=== PATIENT | male | born 1945 | race Two or more races ===

== ENCOUNTER 2024-02-02 19:10 | Inpatient (IN) | payer MEDICARE, OTHER ==
[~2024-02-02] VITALS: Ht 167.6 cm; Wt 70.8 kg
[2024-02-02 20:06] LABS: BASOPHILS # (AUTO) 0.1 K/UL (0.0-0.2); BASOPHILS % (AUTO) 0.6 % (0.0-2.0); EOSINOPHILS # (AUTO) 0.4 K/uL (0.0-0.7); EOSINOPHILS % (AUTO) 4.6 % (0.0-7.0); HEMATOCRIT 44.2 % (36.7-47.1); HEMOGLOBIN 15.3 g/dL (12.5-16.3); LYMPHOCYTES # (AUTO) 2.3 K/uL (0.8-4.8); LYMPHOCYTES % (AUTO) 27.6 % (20.5-51.5); MEAN CORPUSCULAR HEMOGLOBIN 31.9 uug (23.8-33.4); MEAN CORPUSCULAR HGB CONC 35 g/dL (32.5-36.3); MEAN CORPUSCULAR VOLUME 92.5 fL (73.0-96.2); MONOCYTES # (AUTO) 0.7 K/uL (0.1-1.30); NEUTROPHILS # (AUTO) 4.8 K/uL (1.8-8.9); NEUTROPHILS % (AUTO) 58.2 % (38.5-71.5); PLATELET COUNT (AUTO) 207 K/uL (152-348); RED BLOOD CELL COUNT(AUTO) 4.78 MIL/uL (4.06-5.63); RED CELL DISTRIBUTION WIDTH 14.2 % (12.1-16.2); WHITE BLOOD COUNT (AUTO) 8.2 K/uL (3.6-10.2)
[2024-02-02 20:09] LABS: DIFFERENTIAL COMMENT 1
[2024-02-02 20:18] LABS: ETHANOL < 3 MG/DL (0-10)
[2024-02-02 20:26] LABS: ALANINE AMINOTRANSFERASE 22 U/L (16-63); ALBUMIN 3.7 g/dL (3.4-5.0); ALKALINE PHOSPHATASE 84 U/L (50-136); ASPARTATE AMINOTRANSFERASE 13 U/L (15-37); BILIRUBIN,DIRECT 0.1 mg/dL (0.0-0.2); BILIRUBIN,TOTAL 0.5 mg/dL (0.2-1.0); CALCIUM 8.7 mg/dL (8.5-10.1); CARBON DIOXIDE 29 mmol/L (21-32); CHLORIDE 101 mmol/L (98-107); GLUCOSE 166 mg/dL (74-106); POTASSIUM 4.3 mmol/L (3.5-5.1); SODIUM SERUM 138 mmol/L (136-145); TOTAL PROTEIN, SERUM 7.4 g/dL (6.4-8.2); UREA NITROGEN, BLOOD 25 mg/dL (7-18)
[2024-02-02] MEDS ORDERED: QUET100T PO (20:26)
[2024-02-02] MEDS ORDERED: DAPA10TA PO (20:26)
[2024-02-02] MEDS ORDERED: ACET-3117 PO (20:26)
[2024-02-02] MEDS ORDERED: glargine insulin SUBCUT (20:26)
[2024-02-02] MEDS ORDERED: METF-494 PO (20:26)
[2024-02-02] MEDS ORDERED: POLY250017 PO (20:26)
[2024-02-02] MEDS ORDERED: NIFE90TA61 PO (20:26)
[2024-02-02] MEDS ORDERED: MAG355OR18 PO (20:26)
[2024-02-02] MEDS ORDERED: ESCI-9 PO (20:26)
[2024-02-02] MEDS ORDERED: CHOL2000 PO (20:26)
[2024-02-02] MEDS ORDERED: APIX5TAB PO (20:26)
[2024-02-02] MEDS ORDERED: ATOR20TA PO (20:26)
[2024-02-02] MEDS ORDERED: B CO1TAB6 PO (20:26)
[2024-02-02] MEDS ORDERED: FURO20TA4 PO (20:26)
[2024-02-02] MEDS ORDERED: CARV25TA2 PO (20:26)
[2024-02-02] MEDS ORDERED: LOSA100T31 PO (20:26)
[2024-02-02 20:27] LABS: AMMONIA < 10 umol/L (11-32)
[2024-02-02 20:28] LABS: ACETAMINOPHEN < 10.0 ug/mL (10-30)
[2024-02-02 20:34] LABS: *BILIRUBIN,URIN NEGATIVE (NEGATIVE); *BLOOD, URINE NEGATIVE (NEGATIVE); *CLARITY,URINE CLEAR (CLEAR); *COLOR,URINE YELLOW (YELLOW); *KETONES,URINE NEGATIVE (NEGATIVE); *PROTEIN,URINE 1+ (NEGATIVE); *UROBILINOGEN,URINE 0.2 E.U./dl (NORMAL); LEUKOCYTE ESTERASE ,URINE NEGATIVE (NEGATIVE); NITRITE, URINE NEGATIVE (NEGATIVE)
[2024-02-02 20:45] LABS: *AMPHETAMINE, URINE NEGATIVE (NEGATIVE); *BARBITURATE, URINE NEGATIVE (NEGATIVE); *BENZODIAZEPINE, URINE NEGATIVE (NEGATIVE); *CANNABINOID, URINE NEGATIVE (NEGATIVE); *COCCAINE, URINE NEGATIVE (NEGATIVE); *OPIATE, URINE NEGATIVE (NEGATIVE); *PHENCYCLIDINE SCREEN,URINE NEGATIVE (NEGATIVE)
[2024-02-02 20:51] LABS: UGLUCOSE 2+ (NEGATIVE)
[2024-02-02 20:55] LABS: THYROID STIMULATING HORMONE 1.303 mIU/mL (0.358-3.740)
[2024-02-02 20:57] LABS: FENTANYL, URINE NEGATIVE (NEGATIVE)
[2024-02-02 21:07] LABS: BACTERIA,URINE NONE SEEN /HPF (NONE SEEN); RBC,URINE 0-3 /HPF (0-3); SQUAMOUS EPITHELIAL CELL,UR FEW /HPF (NONE SEEN); WBC,URINE NONE SEEN /HPF (0-3)
[2024-02-02] MEDS ORDERED: ACETAMINOPHEN 325 MG TABLET PO PRN (23:30)
[2024-02-02] MEDS ORDERED: MAG HYDROX/AL HYDROX/SIMETH 30 ML LIQUID UDC PO PRN (23:30)
[2024-02-02] MEDS ORDERED: MAGNESIUM HYDROXIDE 30 ML LIQUID UDC PO PRN (23:30)
[2024-02-02 23:40] VITALS: BP 134/74; TEMP 97.8; O2SAT 95
[2024-02-03] MEDS: ZOLPIDEM 5 MG TABLET PO PRN (00:22)
[2024-02-03 07:34] LABS: ALANINE AMINOTRANSFERASE 24 U/L (16-63); ALBUMIN 3.3 g/dL (3.4-5.0); ALKALINE PHOSPHATASE 73 U/L (50-136); ASPARTATE AMINOTRANSFERASE 13 U/L (15-37); BILIRUBIN,TOTAL 0.5 mg/dL (0.2-1.0); CALCIUM 8.9 mg/dL (8.5-10.1); CARBON DIOXIDE 30 mmol/L (21-32); CHLORIDE 105 mmol/L (98-107); GLUCOSE 105 mg/dL (74-106); POTASSIUM 4.4 mmol/L (3.5-5.1); SODIUM SERUM 139 mmol/L (136-145); TOTAL PROTEIN, SERUM 6.3 g/dL (6.4-8.2); UREA NITROGEN, BLOOD 22 mg/dL (7-18)
[2024-02-03 07:39] VITALS: BP 141/65; TEMP 97.8; O2SAT 98
[2024-02-03] MEDS ORDERED: ACETAMINOPHEN 325 MG TABLET PO PRN (09:15)
[2024-02-03] MEDS ORDERED: MAG HYDROX/AL HYDROX/SIMETH 30 ML LIQUID UDC PO PRN (09:15)
[2024-02-03] MEDS: ESCITALOPRAM OXALATE 10 MG TABLET PO SCH (10:00)
[2024-02-03] MEDS: NICOTINE 14 MG/24HR PATCH TD SCH (10:00)
[2024-02-03] MEDS: DIVALPROEX 250 MG TABLET.DR PO SCH (10:01)
[2024-02-03] MEDS ORDERED: METF-440 PO (10:30)
[2024-02-03] MEDS ORDERED: REMEDY ESSENTIAL ZINC PASTE 113 GM TOP PRN (13:45)
[2024-02-03 16:33] VITALS: BP 148/72; TEMP 97.9; O2SAT 98
[2024-02-03] MEDS ORDERED: METFORMIN HCL 750 MG PO SCH (17:00)
[2024-02-03] MEDS: CARVEDILOL 25 MG TABLET PO SCH (17:52)
[2024-02-03] MEDS: APIXABAN 5 MG TABLET PO SCH (17:53)
[2024-02-03 20:00] VITALS: BP 153/62; TEMP 98.3; O2SAT 98
[2024-02-03] MEDS: LORAZEPAM 1 MG TABLET PO PRN (20:52)
[2024-02-03] MEDS: ATORVASTATIN 20 MG TABLET PO SCH (20:52)
[2024-02-03] MEDS: INSULIN GLARGINE,HUM 300 UNITS/3 ML CARTRIDGE SQ SCH (21:08)
[2024-02-04 08:08] VITALS: BP 133/61; TEMP 98.1; O2SAT 98
[2024-02-04] MEDS: MIRALAX 17 GM POWD.PACK PO SCH (08:33)
[2024-02-04] MEDS: NIFEdipine XL 90 MG TABSR PO SCH (08:33)
[2024-02-04] MEDS: FUROSEMIDE 20 MG TABLET PO SCH (08:34)
[2024-02-04] MEDS: LOSARTAN POTASSIUM 50 MG TABLET PO SCH (08:34)
[2024-02-04] MEDS: DAPAGLIFLOZIN PROPANEDIOL 5 MG TABLET PO SCH (08:38)
[2024-02-04] MEDS: MUPIROCIN 2% OINT 22 GM TUBE NS SCH (08:39)
[2024-02-04 16:49] VITALS: BP 98/51; TEMP 98; O2SAT 98
[2024-02-04 20:03] VITALS: BP 115/68; TEMP 97.9; O2SAT 97
[2024-02-05 07:39] VITALS: BP 134/68; TEMP 98.2; O2SAT 98
[2024-02-05] MEDS: METFORMIN HCL 500 MG TABLET PO SCH (08:55)
[2024-02-05 16:09] VITALS: BP 95/53; TEMP 97.8; O2SAT 98
[2024-02-05 20:04] VITALS: BP 104/56; TEMP 98; O2SAT 96
[2024-02-06 07:48] VITALS: BP 138/73; TEMP 98; O2SAT 96
[2024-02-06 15:32] VITALS: BP 136/61; TEMP 98; O2SAT 98
[2024-02-06 20:30] VITALS: BP 164/75; TEMP 98.2; O2SAT 96
[2024-02-06 23:31] VITALS: BP 137/79; O2SAT 96
[2024-02-07 07:56] VITALS: BP 174/74; TEMP 98.2; O2SAT 94
[2024-02-07 10:30] VITALS: BP 154/69; O2SAT 95
[2024-02-07 15:32] VITALS: BP 90/43; TEMP 98; O2SAT 94
[2024-02-07 20:00] VITALS: BP 117/57; TEMP 97.4; O2SAT 94
[2024-02-08 07:30] VITALS: BP 130/72; TEMP 98.2; O2SAT 96
[2024-02-08] MEDS: DIVALPROEX 250 MG TABLET.DR PO SCH (08:22)
[2024-02-08 15:26] VITALS: BP 106/44; TEMP 98; O2SAT 100
[2024-02-08 20:00] VITALS: BP 104/60; TEMP 97.4; O2SAT 92
[2024-02-09 07:30] VITALS: BP 161/75; TEMP 98.2; O2SAT 99
[2024-02-09 15:11] VITALS: BP 90/50; TEMP 98; O2SAT 98
[2024-02-09 20:00] VITALS: BP 98/51; TEMP 97.8; O2SAT 90
[2024-02-10 07:57] VITALS: BP 139/73; TEMP 98; O2SAT 98
[2024-02-10 16:52] VITALS: BP 94/52; TEMP 98; O2SAT 98
[2024-02-10 20:00] VITALS: BP 113/60; TEMP 97.7; O2SAT 95
[2024-02-11 08:44] VITALS: BP 135/62; TEMP 98; O2SAT 98
[2024-02-11 16:10] VITALS: BP 111/56; TEMP 98; O2SAT 98
[2024-02-11 20:06] VITALS: BP 126/60; TEMP 98.2; O2SAT 96
[2024-02-11] MEDS: INSULIN GLARGINE,HUM 300 UNITS/3 ML CARTRIDGE SQ SCH (21:00)
[2024-02-12 07:54] VITALS: BP 131/68; TEMP 98.3; O2SAT 98
[2024-02-12 10:38] LABS: BASOPHILS % (AUTO) 0.4 % (0.0-2.0); EOSINOPHILS # (AUTO) 0.2 K/uL (0.0-0.7); EOSINOPHILS % (AUTO) 3.4 % (0.0-7.0); HEMATOCRIT 41.6 % (36.7-47.1); HEMOGLOBIN 13.9 g/dL (12.5-16.3); LYMPHOCYTES # (AUTO) 1.6 K/uL (0.8-4.8); LYMPHOCYTES % (AUTO) 26.1 % (20.5-51.5); MEAN CORPUSCULAR HEMOGLOBIN 30.9 uug (23.8-33.4); MEAN CORPUSCULAR HGB CONC 34 g/dL (32.5-36.3); MEAN CORPUSCULAR VOLUME 92.2 fL (73.0-96.2); MONOCYTES # (AUTO) 0.7 K/uL (0.1-1.30); MONOCYTES % (AUTO) 11.8 % (0.0-11.0); NEUTROPHILS # (AUTO) 3.6 K/uL (1.8-8.9); NEUTROPHILS % (AUTO) 58.3 % (38.5-71.5); PLATELET COUNT (AUTO) 183 K/uL (152-348); RED BLOOD CELL COUNT(AUTO) 4.52 MIL/uL (4.06-5.63); RED CELL DISTRIBUTION WIDTH 13.9 % (12.1-16.2); WHITE BLOOD COUNT (AUTO) 6.2 K/uL (3.6-10.2)
[2024-02-12 10:41] LABS: DIFFERENTIAL COMMENT 1
[2024-02-12 11:00] LABS: AMMONIA 36 umol/L (11-32)
[2024-02-12 11:17] LABS: ALANINE AMINOTRANSFERASE 44 U/L (16-63); ALKALINE PHOSPHATASE 64 U/L (50-136); ASPARTATE AMINOTRANSFERASE 30 U/L (15-37); BILIRUBIN,TOTAL 0.5 mg/dL (0.2-1.0); CALCIUM 8.6 mg/dL (8.5-10.1); CARBON DIOXIDE 30 mmol/L (21-32); CHLORIDE 104 mmol/L (98-107); CREATININE 0.9 mg/dL (0.6-1.3); GLUCOSE 94 mg/dL (74-106); MAGNESIUM 2.2 mg/dL (1.8-2.4); PHOSPHOROUS 3.2 mg/dL (2.5-4.9); POTASSIUM 4.4 mmol/L (3.5-5.1); SODIUM SERUM 139 mmol/L (136-145); TOTAL PROTEIN, SERUM 6.3 g/dL (6.4-8.2); UREA NITROGEN, BLOOD 34 mg/dL (7-18)
[2024-02-12 16:38] VITALS: BP 99/42; TEMP 98.1; O2SAT 98
[2024-02-12 19:51] VITALS: BP 105/50; TEMP 98.2; O2SAT 96
[2024-02-12] MEDS: MELATONIN 3 MG TABLET PO SCH (20:40)
[2024-02-13 09:26] VITALS: BP 136/56; TEMP 98; O2SAT 92
[2024-02-13 15:15] VITALS: BP 90/45; TEMP 98; O2SAT 98
[2024-02-13 20:10] VITALS: BP 116/52; TEMP 98.2; O2SAT 96
[2024-02-14 07:51] VITALS: BP 146/69; TEMP 98.2; O2SAT 98
[2024-02-14 15:14] VITALS: BP 110/47; TEMP 98; O2SAT 94
== END 2024-02-14 16:00 | DRG 885 ==
LOC: EDBD 19:13 → ER 19:13 → GPS 23:12
PROVIDERS: ADMIT Psychiatry & Neurology Psychiatry; ATTEND Internal Medicine
DX: F32.3 Major depressive disorder, single episode, severe with psychotic features (principal); N18.9 Chronic kidney disease, unspecified; E44.0 Moderate protein-calorie malnutrition; K55.9 Vascular disorder of intestine, unspecified; I13.0 Hypertensive heart and chronic kidney disease with heart failure and stage 1 through stage 4 chronic kidney disease, or unspecified chronic kidney disease; F03.93 Unspecified dementia, unspecified severity, with mood disturbance; F10.20 Alcohol dependence, uncomplicated; Y90.0 Blood alcohol level of less than 20 mg/100 ml; E11.51 Type 2 diabetes mellitus with diabetic peripheral angiopathy without gangrene; Z89.422 Acquired absence of other left toe(s); Z89.421 Acquired absence of other right toe(s); Z87.820 Personal history of traumatic brain injury; E11.42 Type 2 diabetes mellitus with diabetic polyneuropathy; R27.9 Unspecified lack of coordination; M15.9 Polyosteoarthritis, unspecified; F17.210 Nicotine dependence, cigarettes, uncomplicated; J44.9 Chronic obstructive pulmonary disease, unspecified; I48.91 Unspecified atrial fibrillation; G93.89 Other specified disorders of brain; K74.60 Unspecified cirrhosis of liver; M81.0 Age-related osteoporosis without current pathological fracture; I50.9 Heart failure, unspecified; N40.0 Benign prostatic hyperplasia without lower urinary tract symptoms; E11.22 Type 2 diabetes mellitus with diabetic chronic kidney disease; E88.09 Other disorders of plasma-protein metabolism, not elsewhere classified; Z79.84 Long term (current) use of oral hypoglycemic drugs; Z79.899 Other long term (current) drug therapy; Z91.81 History of falling; Z91.199 Patient's noncompliance with other medical treatment and regimen due to unspecified reason; Z79.01 Long term (current) use of anticoagulants; Z60.4 Social exclusion and rejection; R41.9 Unspecified symptoms and signs involving cognitive functions and awareness; F20.9 Schizophrenia, unspecified; F43.10 Post-traumatic stress disorder, unspecified
CPT/HCPCS: 36415; 70450; 71045; 80164; 83735; 84100; 84443; 84484; 85025; 85730; 93005; 97161; A4606; A4663; C1758; G0480; J1815; J3490

== ENCOUNTER 2024-11-18 17:10 | Inpatient (IN) | payer MEDICARE, OTHER ==
[~2024-11-18] VITALS: Ht 167.6 cm; Wt 66.7 kg
[~2024-11-18 17:10] MED LIST: ACET-3117 PO; APIX5TAB PO; ATOR20TA PO; B CO1TAB6 PO; CARV25TA2 PO; CHOL2000 PO; DAPA10TA PO; FURO20TA4 PO; LOSA100T31 PO; MAG355OR18 PO; METF-440 PO; NIFE90TA61 PO; POLY250017 PO; glargine insulin SUBCUT
[2024-11-18 18:02] LABS: BASOPHILS % (AUTO) 0.5 % (0.0-2.0); EOSINOPHILS # (AUTO) 0.1 K/uL (0.0-0.7); EOSINOPHILS % (AUTO) 2.1 % (0.0-7.0); HEMATOCRIT 37.8 % (36.7-47.1); LYMPHOCYTES # (AUTO) 1.5 K/uL (0.8-4.8); LYMPHOCYTES % (AUTO) 29.1 % (20.5-51.5); MEAN CORPUSCULAR HGB CONC 34 g/dL (32.5-36.3); MEAN CORPUSCULAR VOLUME 96.3 fL (73.0-96.2); MONOCYTES # (AUTO) 0.6 K/uL (0.1-1.30); MONOCYTES % (AUTO) 11.6 % (0.0-11.0); NEUTROPHILS # (AUTO) 2.9 K/uL (1.8-8.9); NEUTROPHILS % (AUTO) 56.7 % (38.5-71.5); PLATELET COUNT (AUTO) 217 K/uL (152-348); RED BLOOD CELL COUNT(AUTO) 3.92 MIL/uL (4.06-5.63); RED CELL DISTRIBUTION WIDTH 13.4 % (12.1-16.2); WHITE BLOOD COUNT (AUTO) 5.1 K/uL (3.6-10.2)
[2024-11-18 18:07] LABS: CALCIUM 9.1 mg/dL (8.5-10.1); CARBON DIOXIDE 31 mmol/L (21-32); CHLORIDE 110 mmol/L (98-107); CREATININE 1.1 mg/dL (0.6-1.3); GLUCOSE 127 mg/dL (74-106); POTASSIUM 4.7 mmol/L (3.5-5.1); SODIUM SERUM 148 mmol/L (136-145); UREA NITROGEN, BLOOD 33 mg/dL (7-18)
[2024-11-18 18:15] LABS: ALANINE AMINOTRANSFERASE 25 U/L (16-63); ALBUMIN 3.6 g/dL (3.4-5.0); ALKALINE PHOSPHATASE 69 U/L (50-136); ASPARTATE AMINOTRANSFERASE 32 U/L (15-37); BILIRUBIN,DIRECT 0.1 mg/dL (0.0-0.2); BILIRUBIN,TOTAL 0.5 mg/dL (0.2-1.0); LIPASE 26 U/L (16-77); TOTAL PROTEIN, SERUM 6.8 g/dL (6.4-8.2)
[2024-11-18] MEDS ORDERED: LEVO50TA PO (19:25)
[2024-11-18] MEDS ORDERED: MELA3CAP2 PO (19:25)
[2024-11-18] MEDS ORDERED: MAGN400O6 PO (19:25)
[2024-11-18] MEDS ORDERED: LACT1CAP69 PO (19:25)
[2024-11-18] MEDS ORDERED: ISOS60TA72 PO (19:33)
[2024-11-18] MEDS ORDERED: DIVA500T54 PO (19:33)
[2024-11-18] MEDS ORDERED: LIDO1ADH23 TP (19:33)
[2024-11-18] MEDS ORDERED: BISA10SU61 RC (19:33)
[2024-11-18] MEDS ORDERED: GABA300C PO (19:33)
[2024-11-18] MEDS ORDERED: MINE133E RC (19:33)
[2024-11-18 21:00] LABS: *BILIRUBIN,URIN NEGATIVE (NEGATIVE); *CLARITY,URINE CLEAR (CLEAR); *COLOR,URINE YELLOW (YELLOW); *KETONES,URINE TRACE (NEGATIVE); *PROTEIN,URINE 1+ (NEGATIVE); *UROBILINOGEN,URINE 0.2 E.U./dl (NORMAL); LEUKOCYTE ESTERASE ,URINE NEGATIVE (NEGATIVE); NITRITE, URINE NEGATIVE (NEGATIVE)
[2024-11-18 21:02] LABS: *BLOOD, URINE NEGATIVE (NEGATIVE); RBC,URINE 0-3 /HPF (0-3); UGLUCOSE 2+ (NEGATIVE); WBC,URINE 0-3 /HPF (0-3)
[2024-11-18] MEDS ORDERED: QUETIAPINE FUMARATE 25 MG TABLET PO PRN (22:15)
[2024-11-18] MEDS ORDERED: ZOLPIDEM 5 MG TABLET PO PRN (22:15)
[2024-11-18] MEDS ORDERED: MAGNESIUM HYDROXIDE 30 ML LIQUID UDC PO PRN (22:15)
[2024-11-18] MEDS ORDERED: MAG HYDROX/AL HYDROX/SIMETH 30 ML LIQUID UDC PO PRN (22:15)
[2024-11-18] MEDS ORDERED: DEXTROSE 50% 50 ML DISP.SYRIN IV PRN (22:30)
[2024-11-18] MEDS ORDERED: INSULIN REGULAR, HUMAN 1000 UNIT/10 ML VIAL SQ PRN (22:30)
[2024-11-18] MEDS ORDERED: INSULIN REGULAR, HUMAN 300 UNITS/3 ML VIAL SQ PRN (22:30)
[2024-11-18 22:35] VITALS: BP 165/74; TEMP 98; O2SAT 98
[2024-11-18] MEDS: BLOOD SUGAR DIAGNOSTIC 1 EACH STRIP VI ONE (22:35)
[2024-11-18] MEDS: ZOLPIDEM 5 MG TABLET PO PRN (22:47)
[2024-11-19] MEDS: LORAZEPAM 1 MG TABLET PO PRN (05:15)
[2024-11-19] MEDS: LEVOTHYROXINE SODIUM 50 MCG TABLET PO SCH (06:44)
[2024-11-19] MEDS: BLOOD SUGAR DIAGNOSTIC 1 EACH STRIP VI SCH (06:44)
[2024-11-19] MEDS: METFORMIN HCL 500 MG TABLET PO SCH (08:00)
[2024-11-19 08:20] VITALS: BP 159/64; TEMP 98.1; O2SAT 100
[2024-11-19] MEDS: OLANZAPINE 10 MG VIAL IM STA (08:49)
[2024-11-19] MEDS ORDERED: DIVALPROEX ER 500 MG TAB.SR.24H PO SCH ×2 (09:00)
[2024-11-19] MEDS ORDERED: METFORMIN HCL 500 MG TABLET PO SCH (09:00)
[2024-11-19] MEDS: ISOSORBIDE MONONITRATE 30 MG TAB.SR.24H PO SCH (09:00)
[2024-11-19] MEDS ORDERED: Medication Not On Formulary EA (Losartan Potassium 100 MG) PO SCH (09:00)
[2024-11-19] MEDS: FUROSEMIDE 20 MG TABLET PO SCH (09:00)
[2024-11-19] MEDS ORDERED: ISOSORBIDE MONONITRATE 60 MG TAB.SR.24H PO SCH (09:00)
[2024-11-19] MEDS: APIXABAN 5 MG TABLET PO SCH (09:00)
[2024-11-19] MEDS: LOSARTAN POTASSIUM 50 MG TABLET PO SCH (09:00)
[2024-11-19] MEDS: CARVEDILOL 25 MG TABLET PO SCH (09:00)
[2024-11-19] MEDS: GABAPENTIN 100 MG CAPSULE PO SCH (09:00)
[2024-11-19] MEDS: NIFEdipine XL 90 MG TABSR PO SCH (09:00)
[2024-11-19] MEDS ORDERED: GABAPENTIN 300 MG CAPSULE PO SCH ×2 (09:00)
[2024-11-19] MEDS: DAPAGLIFLOZIN PROPANEDIOL 10 MG TABLET PO SCH (09:00)
[2024-11-19] MEDS ORDERED: LIDO30AD10 TP (12:49)
[2024-11-19 16:14] VITALS: BP 177/109; TEMP 97.6; O2SAT 96
[2024-11-19] MEDS: CLONIDINE TTS 2 PATCH TD SCH (16:18)
[2024-11-19] MEDS: CARVEDILOL 12.5 MG TABLET PO SCH (16:18)
[2024-11-19 20:00] VITALS: BP 169/69; TEMP 98; O2SAT 96
[2024-11-19] MEDS: ATORVASTATIN 20 MG TABLET PO SCH (21:00)
[2024-11-19] MEDS: MELATONIN 3 MG TABLET PO SCH (21:00)
[2024-11-19] MEDS ORDERED: Medication Not On Formulary EA (Melatonin 3 MG) PO SCH (21:00)
[2024-11-19] MEDS ORDERED: INSULIN GLARGINE,HUM 300 UNITS/3 ML CARTRIDGE SQ SCH (21:00)
[2024-11-19] MEDS: DIVALPROEX 125 MG TABLET.DR PO SCH (21:01)
[2024-11-19] MEDS: QUETIAPINE FUMARATE 25 MG TABLET PO SCH (21:01)
[2024-11-19] MEDS: ZOLPIDEM 5 MG TABLET PO PRN (23:34)
[2024-11-19] MEDS: ACETAMINOPHEN 325 MG TABLET PO PRN (23:34)
[2024-11-20] MEDS: QUETIAPINE FUMARATE 25 MG TABLET PO PRN (00:43)
[2024-11-20 08:41] VITALS: BP 138/69; TEMP 98; O2SAT 98
[2024-11-20 20:00] VITALS: BP 84/42; TEMP 98; O2SAT 100
[2024-11-20] MEDS: QUETIAPINE FUMARATE 25 MG TABLET PO SCH (21:05)
[2024-11-20 21:25] VITALS: BP 110/53; O2SAT 98
[2024-11-21 09:28] VITALS: BP 90/45; TEMP 98; O2SAT 98
[2024-11-21] MEDS: DIVALPROEX 250 MG TABLET.DR PO SCH (13:47)
[2024-11-21 15:35] VITALS: BP 94/50; TEMP 98; O2SAT 98
[2024-11-21 20:00] VITALS: BP 92/46; TEMP 98; O2SAT 97
[2024-11-22 08:22] VITALS: BP 128/69; TEMP 98.3; O2SAT 100
[2024-11-22 16:04] VITALS: BP 131/68; TEMP 98.8; O2SAT 100
[2024-11-22 20:00] VITALS: BP 130/67; TEMP 98; O2SAT 97
[2024-11-23 07:23] LABS: BASOPHILS % (AUTO) 0.6 % (0.0-2.0); EOSINOPHILS # (AUTO) 0.1 K/uL (0.0-0.7); EOSINOPHILS % (AUTO) 2.1 % (0.0-7.0); HEMATOCRIT 36.9 % (36.7-47.1); HEMOGLOBIN 12.7 g/dL (12.5-16.3); LYMPHOCYTES # (AUTO) 2.3 K/uL (0.8-4.8); LYMPHOCYTES % (AUTO) 38.8 % (20.5-51.5); MEAN CORPUSCULAR HEMOGLOBIN 32.7 uug (23.8-33.4); MEAN CORPUSCULAR HGB CONC 34 g/dL (32.5-36.3); MEAN CORPUSCULAR VOLUME 95.1 fL (73.0-96.2); MONOCYTES # (AUTO) 0.6 K/uL (0.1-1.30); MONOCYTES % (AUTO) 10.5 % (0.0-11.0); NEUTROPHILS # (AUTO) 2.9 K/uL (1.8-8.9); PLATELET COUNT (AUTO) 200 K/uL (152-348); RED BLOOD CELL COUNT(AUTO) 3.88 MIL/uL (4.06-5.63); RED CELL DISTRIBUTION WIDTH 13.6 % (12.1-16.2); WHITE BLOOD COUNT (AUTO) 5.9 K/uL (3.6-10.2)
[2024-11-23 07:33] LABS: DIFFERENTIAL COMMENT 1
[2024-11-23 08:09] LABS: ALANINE AMINOTRANSFERASE 26 U/L (16-63); ALBUMIN 3.4 g/dL (3.4-5.0); ALKALINE PHOSPHATASE 65 U/L (50-136); ASPARTATE AMINOTRANSFERASE 27 U/L (15-37); BILIRUBIN,TOTAL 0.5 mg/dL (0.2-1.0); CALCIUM 8.9 mg/dL (8.5-10.1); CARBON DIOXIDE 29 mmol/L (21-32); CHLORIDE 106 mmol/L (98-107); CREATININE 1.4 mg/dL (0.6-1.3); GLUCOSE 107 mg/dL (74-106); MAGNESIUM 2.3 mg/dL (1.8-2.4); PHOSPHOROUS 3.8 mg/dL (2.5-4.9); POTASSIUM 4.7 mmol/L (3.5-5.1); SODIUM SERUM 140 mmol/L (136-145); TOTAL PROTEIN, SERUM 6.6 g/dL (6.4-8.2); UREA NITROGEN, BLOOD 40 mg/dL (7-18)
[2024-11-23 08:31] VITALS: BP 133/65; TEMP 98; O2SAT 100
[2024-11-23 08:37] LABS: THYROID STIMULATING HORMONE 0.643 mIU/mL (0.358-3.740)
[2024-11-23 16:39] VITALS: BP 100/61; TEMP 98; O2SAT 100
[2024-11-23] MEDS ORDERED: CLONIDINE-TTS 1 PATCH TD SCH (19:30)
[2024-11-24 08:27] VITALS: BP 110/57; TEMP 98; O2SAT 95
[2024-11-24] MEDS: CLONIDINE-TTS 1 PATCH TD SCH (09:00)
[2024-11-24] MEDS: LOSARTAN POTASSIUM 50 MG TABLET PO SCH (09:33)
[2024-11-24] MEDS: QUETIAPINE FUMARATE 25 MG TABLET PO SCH (09:34)
[2024-11-24 15:40] VITALS: BP 117/59; TEMP 98.2; O2SAT 97
[2024-11-24 20:28] VITALS: BP 112/62; TEMP 98.2; O2SAT 96
[2024-11-25 08:20] VITALS: BP 108/58; TEMP 97.7; O2SAT 100
[2024-11-25 16:02] VITALS: BP 108/41; TEMP 98.1; O2SAT 100
[2024-11-25 20:00] VITALS: BP 136/53; TEMP 98; O2SAT 100
[2024-11-25] MEDS: QUETIAPINE FUMARATE 25 MG TABLET PO SCH (21:37)
[2024-11-26 08:07] VITALS: BP 159/70; TEMP 98; O2SAT 96
[2024-11-26] MEDS: QUETIAPINE FUMARATE 25 MG TABLET PO SCH (08:38)
[2024-11-26 15:20] VITALS: BP 100/57; TEMP 98; O2SAT 96
[2024-11-26 20:00] VITALS: TEMP 98; O2SAT 95
[2024-11-26] MEDS: TRAZODONE 50 MG TABLET PO SCH (20:10)
[2024-11-27 07:26] LABS: BASOPHILS % (AUTO) 0.6 % (0.0-2.0); EOSINOPHILS # (AUTO) 0.1 K/uL (0.0-0.7); EOSINOPHILS % (AUTO) 1.6 % (0.0-7.0); HEMATOCRIT 38.3 % (36.7-47.1); HEMOGLOBIN 13.3 g/dL (12.5-16.3); LYMPHOCYTES # (AUTO) 1.6 K/uL (0.8-4.8); LYMPHOCYTES % (AUTO) 22.5 % (20.5-51.5); MEAN CORPUSCULAR HEMOGLOBIN 32.8 uug (23.8-33.4); MEAN CORPUSCULAR HGB CONC 35 g/dL (32.5-36.3); MEAN CORPUSCULAR VOLUME 94.4 fL (73.0-96.2); MONOCYTES # (AUTO) 0.9 K/uL (0.1-1.30); MONOCYTES % (AUTO) 12.4 % (0.0-11.0); NEUTROPHILS # (AUTO) 4.4 K/uL (1.8-8.9); NEUTROPHILS % (AUTO) 62.9 % (38.5-71.5); PLATELET COUNT (AUTO) 171 K/uL (152-348); RED BLOOD CELL COUNT(AUTO) 4.06 MIL/uL (4.06-5.63); RED CELL DISTRIBUTION WIDTH 13.1 % (12.1-16.2)
[2024-11-27 07:30] LABS: DIFFERENTIAL COMMENT 1
[2024-11-27 07:48] LABS: ALANINE AMINOTRANSFERASE 23 U/L (16-63); ALBUMIN 3.3 g/dL (3.4-5.0); ALKALINE PHOSPHATASE 67 U/L (50-136); ASPARTATE AMINOTRANSFERASE 41 U/L (15-37); BILIRUBIN,TOTAL 0.9 mg/dL (0.2-1.0); CALCIUM 9.1 mg/dL (8.5-10.1); CARBON DIOXIDE 27 mmol/L (21-32); CHLORIDE 102 mmol/L (98-107); GLUCOSE 130 mg/dL (74-106); MAGNESIUM 2.5 mg/dL (1.8-2.4); PHOSPHOROUS 3.5 mg/dL (2.5-4.9); POTASSIUM 4.3 mmol/L (3.5-5.1); SODIUM SERUM 138 mmol/L (136-145); TOTAL PROTEIN, SERUM 6.6 g/dL (6.4-8.2); UREA NITROGEN, BLOOD 36 mg/dL (7-18)
[2024-11-27 08:09] VITALS: BP 156/92; TEMP 98.2; O2SAT 96
[2024-11-27] MEDS ORDERED: ONDANSETRON HCL 4 MG TABLET PO PRN (18:45)
[2024-11-27 20:00] VITALS: BP 100/50; TEMP 98; O2SAT 100
[2024-11-28 08:00] VITALS: BP 87/49; TEMP 97.6; O2SAT 97
[2024-11-28] MEDS: QUETIAPINE FUMARATE 25 MG TABLET PO SCH (15:32)
[2024-11-28 16:00] VITALS: BP 107/55; TEMP 97.2; O2SAT 97
[2024-11-28 21:20] VITALS: BP 110/56; TEMP 97.6; O2SAT 96
[2024-11-29 08:22] VITALS: BP 139/56; TEMP 97.5; O2SAT 100
[2024-11-29 16:12] VITALS: BP 106/61; TEMP 98; O2SAT 100
[2024-11-29 19:54] VITALS: BP 109/66; TEMP 98.6; O2SAT 97
[2024-11-29] MEDS: QUETIAPINE FUMARATE 25 MG TABLET PO SCH (20:34)
[2024-11-30 08:20] VITALS: BP 133/71; TEMP 98.3; O2SAT 96
[2024-11-30 16:50] VITALS: BP 99/45; TEMP 98.4; O2SAT 99
[2024-11-30 20:00] VITALS: BP 100/51; TEMP 98.2; O2SAT 97
[2024-12-01 08:10] VITALS: BP 139/67; TEMP 97.8; O2SAT 96
[2024-12-01 16:56] VITALS: BP 118/75; TEMP 97.5; O2SAT 96
[2024-12-01] MEDS ORDERED: GABAPENTIN 100 MG CAPSULE PO SCH (17:00)
[2024-12-01] MEDS: GABAPENTIN 300 MG CAPSULE PO SCH (17:17)
[2024-12-01 20:49] VITALS: BP 179/82; TEMP 97.2; O2SAT 97
[2024-12-01 21:05] VITALS: BP 104/54; O2SAT 96
[2024-12-02 08:14] VITALS: BP 98/47; TEMP 97.4; O2SAT 100
[2024-12-02 08:31] LABS: ALANINE AMINOTRANSFERASE 19 U/L (16-63); ALKALINE PHOSPHATASE 63 U/L (50-136); ASPARTATE AMINOTRANSFERASE 23 U/L (15-37); BILIRUBIN,TOTAL 0.7 mg/dL (0.2-1.0); CALCIUM 8.6 mg/dL (8.5-10.1); CARBON DIOXIDE 31 mmol/L (21-32); CHLORIDE 101 mmol/L (98-107); CREATININE 1.7 mg/dL (0.6-1.3); GLUCOSE 147 mg/dL (74-106); POTASSIUM 4.7 mmol/L (3.5-5.1); SODIUM SERUM 137 mmol/L (136-145); TOTAL PROTEIN, SERUM 6.1 g/dL (6.4-8.2); UREA NITROGEN, BLOOD 41 mg/dL (7-18); VALPROIC ACID 16 ug/mL (50-100)
[2024-12-02] MEDS ORDERED: CLON1PAT TD (16:06)
[2024-12-02] MEDS ORDERED: CARV12.52 PO (16:06)
[2024-12-02] MEDS ORDERED: QUET25TA PO ×2 (16:06)
[2024-12-02] MEDS ORDERED: DIVA250T47 PO (16:06)
[2024-12-02] MEDS ORDERED: ISOS30TA86 PO (16:06)
[2024-12-02] MEDS ORDERED: QUET50TA PO (16:06)
[2024-12-02] MEDS ORDERED: ZOLP5TAB8 PO (16:06)
[2024-12-02] MEDS ORDERED: TRAZ-182 PO (16:06)
[2024-12-02] MEDS ORDERED: ONDA4TAB5 PO (16:37)
[2024-12-02] MEDS ORDERED: ACET-2154 PO (16:37)
== END 2024-12-02 14:17 | disposition short-term general hospital (02) | DRG 885 ==
LOC: ER 17:10 → GPS 20:30
PROVIDERS: ADMIT Psychiatry & Neurology Psychiatry; ATTEND Internal Medicine
DX: F29 Unspecified psychosis not due to a substance or known physiological condition (principal); N18.9 Chronic kidney disease, unspecified; N17.0 Acute kidney failure with tubular necrosis; I13.0 Hypertensive heart and chronic kidney disease with heart failure and stage 1 through stage 4 chronic kidney disease, or unspecified chronic kidney disease; F03.94 Unspecified dementia, unspecified severity, with anxiety; F03.911 Unspecified dementia, unspecified severity, with agitation; F03.93 Unspecified dementia, unspecified severity, with mood disturbance; F20.9 Schizophrenia, unspecified; J44.9 Chronic obstructive pulmonary disease, unspecified; J43.9 Emphysema, unspecified; F10.21 Alcohol dependence, in remission; F17.210 Nicotine dependence, cigarettes, uncomplicated; I48.0 Paroxysmal atrial fibrillation; Z89.422 Acquired absence of other left toe(s); E11.42 Type 2 diabetes mellitus with diabetic polyneuropathy; G89.29 Other chronic pain; E11.51 Type 2 diabetes mellitus with diabetic peripheral angiopathy without gangrene; G93.89 Other specified disorders of brain; R26.81 Unsteadiness on feet; Z74.09 Other reduced mobility; K70.30 Alcoholic cirrhosis of liver without ascites; Z91.148 Patient's other noncompliance with medication regimen for other reason; I50.9 Heart failure, unspecified; E11.22 Type 2 diabetes mellitus with diabetic chronic kidney disease; D64.9 Anemia, unspecified; Z79.01 Long term (current) use of anticoagulants; Z79.84 Long term (current) use of oral hypoglycemic drugs; Z79.899 Other long term (current) drug therapy; Z87.828 Personal history of other (healed) physical injury and trauma
CPT/HCPCS: 36415; 71045; 80164; 83690; 83735; 84100; 84443; 84484; 85025; C1758; J1815; J2358; J3490

== ENCOUNTER 2024-12-02 15:17 | Inpatient (IN) | payer MEDICARE, OTHER ==
[~2024-12-02] VITALS: Ht 167.6 cm; Wt 64.5 kg
[~2024-12-02 15:17] MED LIST changes: -ACET-3117 PO; -B CO1TAB6 PO; +BISA10SU61 RC; -CHOL2000 PO; +GABA300C PO; +ISOS60TA72 PO; +LACT1CAP69 PO; +LEVO50TA PO; +LIDO30AD10 TP; +MAGN400O6 PO; +MELA3CAP2 PO; +MINE133E RC
[2024-12-02 15:20] VITALS: BP 156/63; TEMP 98.7; O2SAT 92
[2024-12-02] MEDS ORDERED: DIVA250T47 PO (16:06)
[2024-12-02] MEDS ORDERED: ZOLP5TAB8 PO (16:06)
[2024-12-02] MEDS ORDERED: CARV12.52 PO (16:06)
[2024-12-02] MEDS ORDERED: ISOS30TA86 PO (16:06)
[2024-12-02] MEDS ORDERED: QUET50TA PO (16:06)
[2024-12-02] MEDS ORDERED: CLON1PAT TD (16:06)
[2024-12-02] MEDS ORDERED: QUET25TA PO ×2 (16:06)
[2024-12-02] MEDS ORDERED: TRAZ-182 PO (16:06)
[2024-12-02] MEDS ORDERED: ACET-2154 PO (16:37)
[2024-12-02] MEDS ORDERED: ONDA4TAB5 PO (16:37)
[2024-12-02] MEDS: IV 1/2NS 1000 ML 1,000 ML IV PRN (18:22)
[2024-12-02] MEDS ORDERED: REMEDY ESSENTIAL ZINC PASTE 113 GM TP PRN (18:30)
[2024-12-02] MEDS ORDERED: ACETAMINOPHEN 325 MG TABLET PO PRN (18:30)
[2024-12-02] MEDS ORDERED: ZOLPIDEM 5 MG TABLET PO PRN ×2 (18:30→20:00)
[2024-12-02] MEDS ORDERED: ONDANSETRON 4 MG/2 ML VIAL IV PRN (18:30)
[2024-12-02] MEDS ORDERED: MAGNESIUM HYDROXIDE 30 ML LIQUID UDC PO PRN ×2 (18:30→20:00)
[2024-12-02 19:30] VITALS: BP 113/50; TEMP 97.5; O2SAT 100
[2024-12-02] MEDS ORDERED: MAG HYDROX/AL HYDROX/SIMETH 30 ML LIQUID UDC PO PRN (20:00)
[2024-12-02] MEDS ORDERED: ACETAMINOPHEN 325 MG TABLET-SA PATIENTS-PAIN ONLY PO PRN (20:00)
[2024-12-02] MEDS: DIVALPROEX ER 250 MG TAB.SR.24H PO SCH (20:52)
[2024-12-02] MEDS: QUETIAPINE FUMARATE 25 MG TABLET PO SCH (20:52)
[2024-12-02] MEDS: ATORVASTATIN 20 MG TABLET PO SCH (20:53)
[2024-12-02] MEDS: TRAZODONE 50 MG TABLET PO SCH (20:53)
[2024-12-03 04:00] VITALS: BP 118/55; TEMP 97.5; O2SAT 99
[2024-12-03] MEDS: LEVOTHYROXINE SODIUM 50 MCG TABLET PO SCH (06:23)
[2024-12-03 06:38] LABS: BASOPHILS % (AUTO) 0.5 % (0.0-2.0); EOSINOPHILS # (AUTO) 0.1 K/uL (0.0-0.7); EOSINOPHILS % (AUTO) 2.4 % (0.0-7.0); HEMATOCRIT 37.6 % (36.7-47.1); HEMOGLOBIN 13.1 g/dL (12.5-16.3); LYMPHOCYTES # (AUTO) 1.6 K/uL (0.8-4.8); LYMPHOCYTES % (AUTO) 26.8 % (20.5-51.5); MEAN CORPUSCULAR HEMOGLOBIN 33.2 uug (23.8-33.4); MEAN CORPUSCULAR HGB CONC 35 g/dL (32.5-36.3); MEAN CORPUSCULAR VOLUME 95.5 fL (73.0-96.2); MONOCYTES # (AUTO) 0.7 K/uL (0.1-1.30); MONOCYTES % (AUTO) 11.9 % (0.0-11.0); NEUTROPHILS # (AUTO) 3.5 K/uL (1.8-8.9); NEUTROPHILS % (AUTO) 58.4 % (38.5-71.5); PLATELET COUNT (AUTO) 159 K/uL (152-348); RED BLOOD CELL COUNT(AUTO) 3.93 MIL/uL (4.06-5.63); RED CELL DISTRIBUTION WIDTH 12.9 % (12.1-16.2); WHITE BLOOD COUNT (AUTO) 6.1 K/uL (3.6-10.2)
[2024-12-03 06:48] LABS: DIFFERENTIAL COMMENT 1
[2024-12-03 06:52] LABS: CALCIUM 8.7 mg/dL (8.5-10.1); CARBON DIOXIDE 26 mmol/L (21-32); CHLORIDE 102 mmol/L (98-107); CREATININE 0.9 mg/dL (0.6-1.3); GLUCOSE 101 mg/dL (74-106); MAGNESIUM 2.5 mg/dL (1.8-2.4); PHOSPHOROUS 2.9 mg/dL (2.5-4.9); SODIUM SERUM 137 mmol/L (136-145); UREA NITROGEN, BLOOD 30 mg/dL (7-18)
[2024-12-03] MEDS: ISOSORBIDE MONONITRATE 30 MG TAB.SR.24H PO SCH (08:30)
[2024-12-03] MEDS: QUETIAPINE FUMARATE 25 MG TABLET PO SCH (08:30)
[2024-12-03] MEDS: GABAPENTIN 300 MG CAPSULE PO SCH (08:30)
[2024-12-03] MEDS: CLONIDINE-TTS 1 PATCH TD SCH (09:00)
[2024-12-03] MEDS: CARVEDILOL 12.5 MG TABLET PO SCH (09:00)
[2024-12-03] MEDS: NIFEdipine XL 90 MG TABSR PO SCH (09:00)
[2024-12-03 09:02] VITALS: BP 116/58; TEMP 97.8; O2SAT 96
[2024-12-03] MEDS: DAPAGLIFLOZIN PROPANEDIOL 10 MG TABLET PO SCH (09:43)
[2024-12-03] MEDS: APIXABAN 5 MG TABLET PO SCH (09:43)
[2024-12-03 11:08] VITALS: BP 101/54; TEMP 97.6; O2SAT 94
[2024-12-03 15:17] VITALS: BP 133/61; TEMP 97.8; O2SAT 98
[2024-12-03 19:00] VITALS: BP 114/55; TEMP 97; O2SAT 97
[2024-12-03] MEDS ORDERED: hydrALAZINE HCL 25 MG TABLET PO PRN (20:00)
[2024-12-04 04:06] VITALS: BP 128/52; TEMP 98; O2SAT 94
[2024-12-04 06:50] LABS: BASOPHILS % (AUTO) 0.3 % (0.0-2.0); EOSINOPHILS # (AUTO) 0.2 K/uL (0.0-0.7); EOSINOPHILS % (AUTO) 2.9 % (0.0-7.0); HEMOGLOBIN 12.6 g/dL (12.5-16.3); LYMPHOCYTES # (AUTO) 1.6 K/uL (0.8-4.8); LYMPHOCYTES % (AUTO) 27.4 % (20.5-51.5); MEAN CORPUSCULAR HGB CONC 35 g/dL (32.5-36.3); MEAN CORPUSCULAR VOLUME 94.6 fL (73.0-96.2); MONOCYTES # (AUTO) 0.6 K/uL (0.1-1.30); MONOCYTES % (AUTO) 10.9 % (0.0-11.0); NEUTROPHILS # (AUTO) 3.4 K/uL (1.8-8.9); NEUTROPHILS % (AUTO) 58.5 % (38.5-71.5); PLATELET COUNT (AUTO) 178 K/uL (152-348); RED BLOOD CELL COUNT(AUTO) 3.81 MIL/uL (4.06-5.63); RED CELL DISTRIBUTION WIDTH 13.2 % (12.1-16.2); WHITE BLOOD COUNT (AUTO) 5.7 K/uL (3.6-10.2)
[2024-12-04 07:03] LABS: DIFFERENTIAL COMMENT 1
[2024-12-04 07:09] LABS: ALANINE AMINOTRANSFERASE 19 U/L (16-63); ALBUMIN 2.6 g/dL (3.4-5.0); ALKALINE PHOSPHATASE 53 U/L (50-136); ASPARTATE AMINOTRANSFERASE 23 U/L (15-37); BILIRUBIN,TOTAL 0.4 mg/dL (0.2-1.0); CALCIUM 8.5 mg/dL (8.5-10.1); CARBON DIOXIDE 31 mmol/L (21-32); CHLORIDE 106 mmol/L (98-107); CREATININE 0.8 mg/dL (0.6-1.3); GLUCOSE 116 mg/dL (74-106); MAGNESIUM 2.3 mg/dL (1.8-2.4); POTASSIUM 3.9 mmol/L (3.5-5.1); SODIUM SERUM 141 mmol/L (136-145); TOTAL PROTEIN, SERUM 5.9 g/dL (6.4-8.2); UREA NITROGEN, BLOOD 20 mg/dL (7-18)
[2024-12-04] MEDS: CARVEDILOL 6.25 MG TABLET PO SCH (08:00)
[2024-12-04 08:40] VITALS: BP 156/64; TEMP 98.1; O2SAT 99
[2024-12-04] MEDS: NIFEdipine XL 60 MG TABSR PO SCH (08:44)
[2024-12-04 11:01] VITALS: BP 98/46; TEMP 98; O2SAT 97
[2024-12-04] MEDS ORDERED: NIFE-34 PO (12:35)
[2024-12-04] MEDS ORDERED: CARV6.252 PO (12:35)
[2024-12-04 15:40] VITALS: BP 96/54; TEMP 98; O2SAT 96
[2024-12-07] MEDS ORDERED: CLONIDINE-TTS 1 PATCH TD SCH (09:00)
== END 2024-12-04 17:45 | DRG 683 ==
LOC: MEDSURG3 15:17
PROVIDERS: ADMIT Student in an Organized Health Care Education/Training Program; ATTEND Student in an Organized Health Care Education/Training Program
DX: N17.0 Acute kidney failure with tubular necrosis (principal); F03.911 Unspecified dementia, unspecified severity, with agitation; F03.93 Unspecified dementia, unspecified severity, with mood disturbance; F03.94 Unspecified dementia, unspecified severity, with anxiety; I13.0 Hypertensive heart and chronic kidney disease with heart failure and stage 1 through stage 4 chronic kidney disease, or unspecified chronic kidney disease; F17.210 Nicotine dependence, cigarettes, uncomplicated; G93.89 Other specified disorders of brain; E11.42 Type 2 diabetes mellitus with diabetic polyneuropathy; G89.29 Other chronic pain; E11.51 Type 2 diabetes mellitus with diabetic peripheral angiopathy without gangrene; F20.9 Schizophrenia, unspecified; R26.81 Unsteadiness on feet; N18.9 Chronic kidney disease, unspecified; K74.60 Unspecified cirrhosis of liver; F32.A Depression, unspecified; Z66 Do not resuscitate; E11.22 Type 2 diabetes mellitus with diabetic chronic kidney disease; I48.0 Paroxysmal atrial fibrillation; S90.931A Unspecified superficial injury of right great toe, initial encounter; X58.XXXA Exposure to other specified factors, initial encounter; Y92.89 Other specified places as the place of occurrence of the external cause; Z89.422 Acquired absence of other left toe(s); Z89.421 Acquired absence of other right toe(s); Z79.890 Hormone replacement therapy; Z79.899 Other long term (current) drug therapy; Z91.148 Patient's other noncompliance with medication regimen for other reason; Z79.01 Long term (current) use of anticoagulants; Z74.09 Other reduced mobility
CPT/HCPCS: 36415; 83735; 84100; 85025; A4663; G0378